=== PATIENT | male | born 1970 | race Caucasian/White ===

== ENCOUNTER 2017-05-28 21:31 | Emergency (ER) | payer MEDICAID ==
[~2017-05-28] VITALS: Ht 165.1 cm; Wt 86.2 kg
[2017-05-28 22:05] VITALS: Ht 165.1 cm; Wt 86.2 kg
[2017-05-29 00:31] VITALS: BP 132/80
== END 2017-05-29 00:31 | disposition home or self-care (01) ==
LOC: ED 21:31
DX: R51 Headache (principal); R11.2 Nausea with vomiting, unspecified

== ENCOUNTER 2018-08-20 14:15 | Emergency (ER) | payer OTHER ==
[~2018-08-20] VITALS: Ht 165.1 cm; Wt 98.4 kg
[2018-08-20 14:32] VITALS: BP 137/90; Ht 165.1 cm; Wt 98.4 kg
== END 2018-08-20 16:59 | disposition home or self-care (01) ==
LOC: ED 14:15
DX: M54.31 Sciatica, right side (principal)
CPT/HCPCS: J1885